=== PATIENT | male | born 1970 | race Caucasian/White ===

== ENCOUNTER → 2018-08-16 | Outpatient (CLI) | payer OTHER ==
--- NOTE | 2018-08-16 11:09 | PCVCIMAG ---
APPROVED REPORT Study performed: 08/16/2018 10:08:18 Exam: Stress Echocardiogram Indication: Chest pain , Dyspnea, ABN ekg, elevated calcium score Patient Location: Echo lab Stress Nurse: Lesly Pro RN Status: routine Ht: 6 ft 0 in HR: 80 bpm BP: 126/76 mmHg Rhythm: NSR Procedure The patient underwent an Exercise Stress Test using the Onofre Protocol. Blood pressure, heart rate, and EKG were monitored. An Echocardiogram was performed by quality assurance lab technician in four stages in quad fashion. At peak stress, four selected images were obtained and placed side by side with resting images for comparison. Stress Test Details Stress Test: Exercise stress testing was performed using a Onofre protocol. HR Resting HR: 80 bpmMax Heart Rate (APMHR): 171 bpm Max HR Achieved: 171 bpmTarget HR (85% APMHR): 145 bpm % of APMHR: 100 Recovery HR: 101 bpm HR response to stress: Normal HR response to stress BP Resting BP: 126/76 mmHg Max BP: 180/84 mmHg Recovery BP: 144/74 mmHg BP response to stress: Normal blood pressure response to stress. ECG Resting ECG: Sinus Rhythm Stress ECG: Sinus Rhythm ST Change: Normal Arrhythmia: None Recovery ECG: Sinus Rhythm Recovery ST Change: Normal Recovery Arrhythmia: None Clinical Reason for Termination: Maximal effort Stress Symptoms: Dyspnea Exercise duration: 13 min sec Highest Stage Achieved: Stage 5: 5.0 mph at 18% grade. Exercise capacity: 16.9 METs Overall Exercise Capacity for Age: Excellent Scale: Active Angina Score: None Pre-Stress Echo The resting Echocardiogram showed normal left ventricular contractility with an estimated Ejection Fraction of about 50-55%. Normal wall motion in all segments on baseline images. Post-Stress Echo The stress Echocardiogram showed normal left ventricular contractility with an estimated Ejection Fraction of about 65%. Normal augmentation of wall motion in all segments on post stress images. Clinical No clinical or ECG evidence for ischemia. Conclusion Clinical Response: Non-ischemic Exercise Capacity: Superior Stress ECG Response: Non-ischemic Stress Echo Images: Non-ischemic The left ventricle is normal in size and wall thickness in both the rest and stress images. Mildly dilated right ventricle with PAP of 35 mmHg. Other Information Study Quality: Adequate <Conclusion> The left ventricle is normal in size and wall thickness in both the rest and stress images. Mildly dilated right ventricle with PAP of 35 mmHg.
--- NOTE | 2018-08-16 11:48 | PCVCIMAG ---
EXAM: ABDOMINAL ULTRASOUND COMPLETE INDICATION: Abdominal pain FINDINGS: Gallbladder: 2.4 cm shadowing gallstone. No wall thickening or abnormal pericholecystic fluid. Liver: Normal in size measuring 17.9 cm in length. No focal masses. Bile ducts: No intra or extra hepatic bile duct dilatation. The common bile duct measures 3.6 mm. Pancreas: Difficult to see due to overlying bowel gas. Spleen: Normal in size measuring 12.4 cm in greatest dimension. No focal masses. Right kidney: No hydronephrosis. Length measures 11.9 cm. Left kidney: No hydronephrosis. Length measures 12.5 cm. Inferior vena cava: Normal in size where seen. Aorta: Normal in caliber where seen. IMPRESSION: 2.4 cm gallstone. Gallbladder otherwise unremarkable. LOC:[id number]
== END | disposition home or self-care (01) ==
LOC: PCVCIMAG 10:05
PROVIDERS: ATTEND Internal Medicine Cardiovascular Disease
DX: I51.7 Cardiomegaly (principal); K80.20 Calculus of gallbladder without cholecystitis without obstruction; I48.91 Unspecified atrial fibrillation; R94.31 Abnormal electrocardiogram [ECG] [EKG]; R06.00 Dyspnea, unspecified; R06.02 Shortness of breath; E78.00 Pure hypercholesterolemia, unspecified; Z86.79 Personal history of other diseases of the circulatory system; Z82.49 Family history of ischemic heart disease and other diseases of the circulatory system
CPT/HCPCS: 76700; 93325; 93351